=== PATIENT | female | born 1930 | race Caucasian/White ===

== ENCOUNTER 2017-10-29 23:08 | Inpatient (IN) ==
[2017-10-30] MEDS ORDERED: ONDANSETRON 4 MG/2 ML VIAL IV PRN ×2 (01:12→14:19)
[2017-10-30] MEDS: SODIUM CHLORIDE 0.9% 1,000 ML IV SCH ×3 (01:30→22:50)
[2017-10-30 04:43] LABS: Basophils % 0.1 % (0.0-0.8); Eosinophils % 0.1 % (0.00-10.9); Hematocrit 30.6 VOL% (35.7-47.0); Hemoglobin 9.8 GM/DL (12.0-16.0); Immature Granulocytes % 0.5 %; Immature Granulocytes Absolute 0.07 #; Lymphocytes # 1.5 10*3/uL (1.4-4.0); Lymphocytes % 10.7 % (21.3-54.2); Mean Corpuscular Hemoglobin 30 PG (27-34); Mean Corpuscular Volume 93.6 FL (87-102); Mean Platelet Volume 10.5 FL (9.6-12.0); Monocytes # 0.8 10*3/uL (0.11-0.8); Monocytes % 5.6 % (1.7-12.7); Neutrophils # 11.5 10*3/uL (1.4-7.4); Platelet Count 148 T/CUMM (130-400); Red Blood Count 3.27 MC/CUMM (3.8-5.5); Red Cell Distribution Width 14.2 % (9.3-17.3); White Blood Count 13.8 T/CUMM (4-12)
[2017-10-30 04:47] LABS: PT Patient Result 10.1 SECS
[2017-10-30 04:57] LABS: Calcium 8.6 MG/DL (8.5-10.1); Osmolality,Calculated 284.4 MOS/KG (273-304); Potassium 4.5 MMOL/L (3.5-5.1)
[2017-10-30] MEDS: MORPHINE 2 MG/1 ML SYRINGE IV PRN ×2 (08:11→18:04)
[2017-10-30] MEDS ORDERED: BUPIVACAINE SPINAL 0.75% 2 ML AMP SPINAL ONE (10:56)
[2017-10-30] MEDS ORDERED: ceFAZolin 1,000 MG VIAL ONE ×2 (13:12→14:19)
[2017-10-30] MEDS ORDERED: HYDROmorphone 2 MG/1 ML VIAL ONE (14:18)
[2017-10-30] MEDS ORDERED: fentaNYL 100 MCG/2 ML VIAL ONE (14:19)
[2017-10-30] MEDS ORDERED: PHENYLEPHRINE 10 MG/1 ML VIAL IV ONE (14:19)
[2017-10-30] MEDS ORDERED: MIDAZOLAM 2 MG/2 ML VIAL ONE (14:19)
[2017-10-30] MEDS ORDERED: HYDROmorphone 2 MG/1 ML VIAL IV PRN (14:19)
[2017-10-30] MEDS ORDERED: PROPOFOL 200 MG/20 ML VIAL IV ONE (14:19)
[2017-10-30] MEDS ORDERED: ONDANSETRON 4 MG/2 ML VIAL ONE ×2 (14:19)
[2017-10-30] MEDS ORDERED: DOCUSATE SODIUM 100 MG CAPSULE PO PRN (15:43)
[2017-10-30] MEDS: SERTRALINE 50 MG TABLET PO SCH (20:25)
[2017-10-31] MEDS: SODIUM CHLORIDE 0.9% 1,000 ML IV SCH (04:12)
[2017-10-31 06:12] LABS: Calcium 7.9 MG/DL (8.5-10.1); Osmolality,Calculated 283.4 MOS/KG (273-304); Potassium 4.4 MMOL/L (3.5-5.1)
[2017-10-31 06:18] LABS: Ferritin 106.1 ng/ml (8-252)
[2017-10-31 06:34] LABS: Folate 15.7 NG/ML (5.4-24.0); Vitamin B12 239 PG/ML (211-911)
[2017-10-31 06:59] LABS: Basophils % 0.2 % (0.0-0.8); Eosinophils # 0.1 10*3/uL (0.0-0.87); Eosinophils % 0.9 % (0.00-10.9); Hematocrit 22.3 VOL% (35.7-47.0); Immature Granulocytes % 0.4 %; Immature Granulocytes Absolute 0.04 #; Lymphocytes # 1.7 10*3/uL (1.4-4.0); Lymphocytes % 16.3 % (21.3-54.2); Mean Corpuscular HGB Conc 32.3 GM/DL (32-36); Mean Corpuscular Hemoglobin 30 PG (27-34); Mean Corpuscular Volume 94.1 FL (87-102); Mean Platelet Volume 10.8 FL (9.6-12.0); Monocytes # 1.2 10*3/uL (0.11-0.8); Monocytes % 10.9 % (1.7-12.7); Neutrophils # 7.6 10*3/uL (1.4-7.4); Neutrophils % 71.3 % (38.7-73.9); Red Cell Distribution Width 14.6 % (9.3-17.3); White Blood Count 10.6 T/CUMM (4-12)
[2017-10-31 07:09] LABS: Platelet Count 104 T/CUMM (130-400); Red Blood Count 2.37 MC/CUMM (3.8-5.5)
[2017-10-31 07:10] LABS: Hemoglobin 7.2 GM/DL (12.0-16.0)
[2017-10-31 08:21] LABS: Sedimentation Rate-Westergren 60 MM/HR (0-30)
[2017-10-31 08:50] LABS: Hemoglobin A1 (Alkaline) 97.5 % (96.5-98.5); Hemoglobin A2 (Alkaline) 2.5 % (1.5-3.5)
[2017-10-31] MEDS ORDERED: ASPIRIN EC 81 MG TABLET PO SCH (09:00)
[2017-10-31] MEDS ORDERED: CYANOCOBALAMIN 1000 MCG/1 ML VIAL IM ONE (09:21)
[2017-10-31] MEDS ORDERED: SODIUM PHOSPHATE ENEMA 133 ML BOTTLE RECTAL PRN (09:26)
[2017-10-31] MEDS ORDERED: ENOXAPARIN 40 MG/0.4 ML SYRINGE SUBCUT SCH (09:30)
[2017-10-31] MEDS: POLYETHYLENE GLYCOL POWDER 17 GM PACK PO SCH ×2 (09:56→21:52)
[2017-10-31] MEDS ORDERED: traMADol 50 MG TABLET PO PRN (10:55)
[2017-10-31] MEDS ORDERED: DIGOXIN 0.125 MG TABLET PO SCH (13:00)
[2017-10-31] MEDS: MORPHINE 2 MG/1 ML SYRINGE IV PRN (15:22)
[2017-10-31] MEDS: LACTULOSE 20 GM/30 ML UDCUP PO SCH ×2 (16:06→21:52)
[2017-10-31] MEDS: DOCUSATE SODIUM 100 MG CAPSULE PO SCH (21:51)
[2017-10-31] MEDS: SERTRALINE 50 MG TABLET PO SCH (21:52)
[2017-11-01] MEDS ORDERED: DILTIAZEM 50 MG/10 ML VIAL IV ONE (02:03)
[2017-11-01] MEDS ORDERED: ACETAMINOPHEN 325 MG TABLET PO PRN (02:03)
[2017-11-01] MEDS ORDERED: ENOXAPARIN 60 MG/0.6 ML SYRINGE SUBCUT SCH (02:03)
[2017-11-01] MEDS ORDERED: DILTIAZEM INJ 100 MG in SODIUM CHLORIDE 0.9% 100 ML IV SCH (02:03)
[2017-11-01] MEDS ORDERED: SODIUM CHLORIDE 0.9% 500 ML IV ONE (02:57)
[2017-11-01] MEDS ORDERED: DIGOXIN 0.5 MG/2 ML AMP IV ONE (03:17)
[2017-11-01 03:55] LABS: Basophils % 0.2 % (0.0-0.8); Eosinophils # 0.1 10*3/uL (0.0-0.87); Eosinophils % 0.5 % (0.00-10.9); Hematocrit 20.4 VOL% (35.7-47.0); Immature Granulocytes % 0.5 %; Immature Granulocytes Absolute 0.07 #; Lymphocytes # 1.4 10*3/uL (1.4-4.0); Lymphocytes % 10.6 % (21.3-54.2); Mean Corpuscular HGB Conc 30.9 GM/DL (32-36); Mean Corpuscular Hemoglobin 30 PG (27-34); Mean Corpuscular Volume 97.6 FL (87-102); Mean Platelet Volume 10.4 FL (9.6-12.0); Monocytes # 1.3 10*3/uL (0.11-0.8); Monocytes % 9.9 % (1.7-12.7); Neutrophils # 10.2 10*3/uL (1.4-7.4); Neutrophils % 78.3 % (38.7-73.9); Platelet Count 87 T/CUMM (130-400); Red Blood Count 2.09 MC/CUMM (3.8-5.5); Red Cell Distribution Width 14.4 % (9.3-17.3)
[2017-11-01 03:58] LABS: Hemoglobin 6.3 GM/DL (12.0-16.0)
[2017-11-01] MEDS: SODIUM CHLORIDE 0.9% 1,000 ML IV SCH ×3 (04:03→10:28)
[2017-11-01 04:17] LABS: Band Neutrophils 2 % (0-10); Lymphocytes 11 % (20-55); Segmented Neutrophils 82 % (50-85); Total Cells Counted 100
[2017-11-01 04:18] LABS: Anisocytosis Slight; Macrocytosis 2+; Platelet Estimate Decreased
[2017-11-01 04:23] LABS: Lactic Acid 0.7 MMOL/L (0.4-2.0)
[2017-11-01 04:28] LABS: Alanine Aminotransferase 11 U/L (13-56); Albumin 2.6 G/DL (3.4-5.0); Alkaline Phosphatase 59 U/L (45-117); Aspartate Amino Transferase 23 U/L (0-37); Blood Urea Nitrogen 24 MG/DL (7-18); Calcium 7.4 MG/DL (8.5-10.1); Total Protein 5.2 G/DL (6.4-8.3)
[2017-11-01 04:29] LABS: Glucose 122 MG/DL (74-106); Osmolality,Calculated 285.3 MOS/KG (273-304); Potassium 4.4 MMOL/L (3.5-5.1); Sodium 141 MMOL/L (136-145); Troponin I Only < 0.015 NG/ML (0.00-0.045)
[2017-11-01] MEDS: CYANOCOBALAMIN 500 MCG TABLET PO SCH (08:18)
[2017-11-01] MEDS: LACTULOSE 20 GM/30 ML UDCUP PO SCH ×3 (08:19→22:36)
[2017-11-01] MEDS: DOCUSATE SODIUM 100 MG CAPSULE PO SCH ×2 (08:19→21:27)
[2017-11-01] MEDS: POLYETHYLENE GLYCOL POWDER 17 GM PACK PO SCH ×2 (08:19→22:37)
[2017-11-01] MEDS ORDERED: IRON SUCROSE 200 MG in SODIUM CHLORIDE 0.9% 100 ML IV ONE (11:30)
[2017-11-01] MEDS: DIGOXIN 0.125 MG TABLET PO SCH (14:00)
[2017-11-01 14:31] LABS: Hemoglobin 9.6 GM/DL (12.0-16.0)
[2017-11-01] MEDS: SERTRALINE 50 MG TABLET PO SCH (21:28)
[2017-11-02] MEDS: DOCUSATE SODIUM 100 MG CAPSULE PO SCH ×2 (10:00→21:48)
[2017-11-02] MEDS: CYANOCOBALAMIN 500 MCG TABLET PO SCH (10:00)
[2017-11-02] MEDS: POLYETHYLENE GLYCOL POWDER 17 GM PACK PO SCH ×2 (10:00→21:47)
[2017-11-02] MEDS: LACTULOSE 20 GM/30 ML UDCUP PO SCH ×3 (10:00→21:47)
[2017-11-02] MEDS ORDERED: LISINOPRIL 10 MG TABLET PO SCH (10:30)
[2017-11-02] MEDS ORDERED: cloNIDine 0.1 MG TABLET PO PRN (11:30)
[2017-11-02] MEDS: DIGOXIN 0.125 MG TABLET PO SCH (12:33)
[2017-11-02] MEDS ORDERED: LABETALOL 20 MG/4 ML SYRINGE IV ONE (13:22)
[2017-11-02] MEDS: SODIUM CHLORIDE 0.9% 1,000 ML IV SCH ×4 (14:45→22:12)
[2017-11-02] MEDS: LISINOPRIL 20 MG TABLET PO SCH (18:01)
[2017-11-02] MEDS: CARVEDILOL 12.5 MG TABLET PO SCH (21:47)
[2017-11-02] MEDS: ATORVASTATIN 40 MG TABLET PO SCH (21:47)
[2017-11-02] MEDS: SERTRALINE 50 MG TABLET PO SCH (21:48)
[2017-11-02] MEDS ORDERED: hydrALAZINE 20 MG/1 ML VIAL IV PRN (22:34)
[2017-11-03 04:59] LABS: Basophils % 0.2 % (0.0-0.8); Eosinophils # 0.4 10*3/uL (0.0-0.87); Eosinophils % 3.4 % (0.00-10.9); Hematocrit 25.3 VOL% (35.7-47.0); Hemoglobin 8.3 GM/DL (12.0-16.0); Immature Granulocytes % 0.7 %; Immature Granulocytes Absolute 0.08 #; Lymphocytes # 1.4 10*3/uL (1.4-4.0); Lymphocytes % 12.4 % (21.3-54.2); Mean Corpuscular HGB Conc 32.8 GM/DL (32-36); Mean Corpuscular Hemoglobin 29 PG (27-34); Mean Corpuscular Volume 89.7 FL (87-102); Mean Platelet Volume 10.6 FL (9.6-12.0); Monocytes # 1.1 10*3/uL (0.11-0.8); Monocytes % 9.2 % (1.7-12.7); Neutrophils # 8.6 10*3/uL (1.4-7.4); Neutrophils % 74.1 % (38.7-73.9); Platelet Count 119 T/CUMM (130-400); Red Blood Count 2.82 MC/CUMM (3.8-5.5); Red Cell Distribution Width 15.4 % (9.3-17.3); White Blood Count 11.6 T/CUMM (4-12)
[2017-11-03 05:28] LABS: Potassium 4.8 MMOL/L (3.5-5.1)
[2017-11-03] MEDS: POLYETHYLENE GLYCOL POWDER 17 GM PACK PO SCH ×2 (08:53→21:01)
[2017-11-03] MEDS: DOCUSATE SODIUM 100 MG CAPSULE PO SCH ×2 (08:53→21:01)
[2017-11-03] MEDS: LACTULOSE 20 GM/30 ML UDCUP PO SCH ×3 (08:53→21:02)
[2017-11-03] MEDS: CYANOCOBALAMIN 500 MCG TABLET PO SCH (08:53)
[2017-11-03] MEDS: CARVEDILOL 12.5 MG TABLET PO SCH ×2 (08:54→21:01)
[2017-11-03] MEDS: DIGOXIN 0.125 MG TABLET PO SCH (14:49)
[2017-11-03] MEDS: LISINOPRIL 20 MG TABLET PO SCH (16:04)
[2017-11-03 17:31] LABS: HIT Interpretation Negative (Negative)
[2017-11-03] MEDS: ATORVASTATIN 40 MG TABLET PO SCH (21:01)
[2017-11-03] MEDS: SERTRALINE 50 MG TABLET PO SCH (21:01)
[2017-11-03] MEDS: FERROUS SULFATE 325 MG TABLET PO SCH (21:01)
[2017-11-04 05:15] LABS: Basophils % 0.3 % (0.0-0.8); Eosinophils # 0.3 10*3/uL (0.0-0.87); Eosinophils % 2.9 % (0.00-10.9); Hematocrit 27.3 VOL% (35.7-47.0); Hemoglobin 8.5 GM/DL (12.0-16.0); Immature Granulocytes % 0.7 %; Immature Granulocytes Absolute 0.08 #; Lymphocytes # 1.6 10*3/uL (1.4-4.0); Lymphocytes % 13.9 % (21.3-54.2); Mean Corpuscular HGB Conc 31.1 GM/DL (32-36); Mean Corpuscular Hemoglobin 29 PG (27-34); Mean Corpuscular Volume 91.9 FL (87-102); Mean Platelet Volume 10.5 FL (9.6-12.0); Monocytes # 1.1 10*3/uL (0.11-0.8); Monocytes % 9.6 % (1.7-12.7); Neutrophils # 8.4 10*3/uL (1.4-7.4); Neutrophils % 72.6 % (38.7-73.9); Platelet Count 134 T/CUMM (130-400); Red Blood Count 2.97 MC/CUMM (3.8-5.5); Red Cell Distribution Width 15.4 % (9.3-17.3); White Blood Count 11.6 T/CUMM (4-12)
[2017-11-04] MEDS: POLYETHYLENE GLYCOL POWDER 17 GM PACK PO SCH (08:54)
[2017-11-04] MEDS: CYANOCOBALAMIN 500 MCG TABLET PO SCH (08:55)
[2017-11-04] MEDS: FERROUS SULFATE 325 MG TABLET PO SCH (08:56)
[2017-11-04] MEDS: LACTULOSE 20 GM/30 ML UDCUP PO SCH (08:56)
[2017-11-04] MEDS: DOCUSATE SODIUM 100 MG CAPSULE PO SCH (08:56)
[2017-11-04] MEDS: CARVEDILOL 12.5 MG TABLET PO SCH (08:56)
[2017-11-04] MEDS ORDERED: PANTOPRAZOLE 40 MG TABLET PO SCH (09:00)
[2017-11-04 12:34] VITALS: BP 132/59
== END 2017-11-04 14:08 | DRG 481 ==
LOC: EDUNIT# → EDBD → N.ED 23:08 → N.EDINP 10-30 01:10 → N.3E 10-30 01:57 → N.ICU 11-01 02:23 → N.TELEN 11-01 17:52
PROVIDERS: ADMIT Hospitalist; ATTEND Hospitalist